=== PATIENT | female | born 1985 | race Hispanic/Latino ===

== ENCOUNTER 2017-03-03 16:50 | Emergency (ER) | payer OTHER ==
[2017-03-03 16:59] VITALS: BP 130/87; TEMP 98.6
[2017-03-03 18:20] LABS: BASO % 0.5 % (0.0-2.0); EOS % 0.3 % (0.0-4.0); HEMATOCRIT 37.8 % (34.0-47.0); LYMPH # 1.9 K/uL (1.0-4.3); LYMPH % 36.9 % (20.0-40.0); MEAN CELL VOLUME 90.1 fl (81.0-99.0); MEAN CORPUSCULAR HEMOGLOBIN 29.4 pg (27.0-31.0); MEAN CORPUSCULAR HGB CONC 32.6 g/dL (33.0-37.0); MEAN PLATELET VOLUME 8.6 fl (7.2-11.7); MONO # 0.4 K/uL (0.0-0.8); MONO % 8.5 % (0.0-10.0); NEUT # 2.7 K/uL (1.8-7.0); NEUT % 53.8 % (50.0-75.0); NRBC % 0.1 % (0.0-0.0); RED CELL DISTRIBUTION WIDTH 13.3 % (11.5-14.5)
--- NOTE | 2017-03-03 18:22 | ED PDOC ---
HPI: Abdomen Time Seen by Provider: 03/03/17 17:47 Chief Complaint (Nursing): Chest Pain Additional Complaint(s): 32yo F in Ed for eval or RUQ pain and band like pain radiating to the right mid back [id number] made worse with bending over states she feels a gas like sound without difficulty with breathing, SOB or chest pain. admits to mild nausea without vomiting today and dec appetite. Pt denies any pain at this time. PT denies injury. negative for: prolonged travel, bleeding d/o, recent injury/surgery. denies hematuira, dysuira Positive: takes oral control x 12 years. Past Medical History Reviewed: Historical Data, Nursing Documentation, Vital Signs Vital Signs: Last Vital Signs Temp 98.6 F 03/03/17 16:57 Pulse 113 H 03/03/17 16:57 Resp 16 03/03/17 16:57 BP 130/87 03/03/17 16:57 Pulse Ox 100 03/03/17 18:49 - Medical History PMH: Anxiety - Family History Family History: States: No Known Family Hx - Allergies Allergies/Adverse Reactions: Allergies Allergy/AdvReac Type Severity Reaction Status Date / Time No Known Allergies Allergy Verified 03/03/17 16:56 Review of Systems ROS Statement: Except As Marked, All Systems Reviewed And Found Negative Constitutional: Negative for: Fever, Chills Gastrointestinal: Positive for: Abdominal Pain Musculoskeletal: Positive for: Back Pain Physical Exam - Reviewed Nursing Documentation Reviewed: Yes Vital Signs Reviewed: Yes - Physical Exam Appears: Positive for: Well, Non-toxic, No Acute Distress Skin: Positive for: Normal Color, Warm, DRY Cardiovascular/Chest: Positive for: Regular Rate, Rhythm Respiratory: Positive for: CNT, Normal Breath Sounds Gastrointestinal/Abdominal: Positive for: Bowel Sounds, Soft, Tenderness (RUQ pain) Back: Negative for: L CVA Tenderness, R CVA Tenderness Extremity: Positive for: Normal ROM Neurologic/Psych: Positive for: Alert, Oriented - Laboratory Results Result Diagrams: 03/03/17 18:11 03/03/17 18:11 - ECG O2 Sat by Pulse Oximetry: 100 - Progress ED Course And Treament: PT with negative findings on US other than liver lesion-pt aware of this from her previous PMD visits. PT with normal labs values. PT made aware of low suspicion of PE only due to HR and control use pt opting at this time to use less invasive methods of r.o PE hence will do a D-dimer. pt aware of D-dimer is elevated will need to do CT scan of Chest. PT made aware of low sensitivity and specificity. pt was offered control of nausea and or pain, but declined. Disposition - Clinical Impression Clinical Impression: Chest pain - Patient ED Disposition Is Patient to be Admitted: Transfer of Care - Disposition Disposition Time: 20:11 Condition: STABLE Forms: [facility] (Urdu) Patient Signed Over To: Betzy Dolan
[2017-03-03 18:31] LABS: ALB/GLOB RATIO 1.5 (1.0-2.1); ALKALINE PHOSPHATASE 30 U/L (38-126); ALT/SGPT 28 U/L (9-52); AST/SGOT 22 U/L (14-36); BILIRUBIN,TOTAL 0.7 mg/dl (0.2-1.3); BLOOD UREA NITROGEN 9 mg/dl (7-17); CALCIUM 9.4 mg/dL (8.4-10.2); CARBON DIOXIDE 22 mmol/L (22-30); CHLORIDE 107 mmol/L (98-107); GFR AFRICAN-AMERICAN > 60; GLUCOSE,RANDOM 82 mg/dL (65-105); LIPASE 55 U/L (23-300); POTASSIUM 3.7 MMOL/L (3.6-5.0); SODIUM 139 mmol/l (132-148); TOTAL PROTEIN 7.2 G/DL (6.3-8.2)
--- NOTE | 2017-03-03 19:03 | US ---
HISTORY: RUQ pain with radiation to back COMPARISON: None available. TECHNIQUE: Sonographic evaluation of the right upper quadrant of the abdomen. FINDINGS: LIVER: Measures 15.3 cm in length. 1.1 x 0.9 x 1.4 cm echogenic right hepatic lobe lesion. The main portal vein appears patent with normal directional flow. No intrahepatic bile duct dilatation. GALLBLADDER: No gallstones. No gallbladder wall thickening or pericholecystic edema. Negative sonographic Hassan's sign as assessed by the materials director. COMMON BILE DUCT: Measures 3 mm. PANCREAS: Not well-visualized. RIGHT KIDNEY: Measures 9.1 x 4.2 x 3.9 cm. No obstructing calculus or hydronephrosis identified. AORTA: Limited visualization appears grossly unremarkable. IVC: Limited visualization appears grossly unremarkable. OTHER FINDINGS: None. IMPRESSION: 1.1 x 0.9 x 1.4 cm echogenic right hepatic lobe lesion, indeterminate. Dedicated three-phase liver protocol CT or MRI may be considered for further characterization if indicated.
[2017-03-03 19:08] LABS: RBC URINE 4 /hpf (0-3); URINE BILIRUBIN NEGATIVE (NEGATIVE); URINE BLOOD SMALL (NEGATIVE); URINE COLOR YELLOW (YELLOW); URINE GLUCOSE (UA) NEG (Normal); URINE KETONE 80 mg/dL (NEGATIVE); URINE LEUKOCYTE ESTERASE NEG Leu/uL (Negative); URINE PROTEIN NEGATIVE (NEGATIVE); URINE UROBILINOGEN 0.2-1.0 mg/dL (0.2-1.0); WBC URINE 1 /hpf (0-5)
--- NOTE | 2017-03-03 20:32 | ED PDOC ---
- Laboratory Results Result Diagrams: 03/03/17 18:11 03/03/17 18:11 - ECG O2 Sat by Pulse Oximetry: 100 - Progress ED Course And Treament: Case endorsed to marine underwriter from Raffy CRAIG pending labs Patient educated on findings, discharged with instructions to follow up PMD 2-3 days. Advised NSAIDs. Return to ED for worsening/concerning symptoms. Disposition - Clinical Impression Clinical Impression: Chest pain - POA Present On Arrival: None - Disposition Disposition: Routine/Home Disposition Time: 20:32 Condition: STABLE Instructions: Chest Pain (ED) Forms: [facility] (Greenlandic)
[2017-03-03 20:43] VITALS: PULSE 87; RESP 18; O2SAT 99
--- NOTE | 2017-03-04 08:31 | RAD ---
HISTORY: chest pain COMPARISON: No prior. TECHNIQUE: Chest PA and lateral FINDINGS: LUNGS: No active pulmonary disease. PLEURA: No significant pleural effusion identified. No pneumothorax apparent. CARDIOVASCULAR: Normal. OSSEOUS STRUCTURES: No significant abnormalities. VISUALIZED UPPER ABDOMEN: Normal. OTHER FINDINGS: None. IMPRESSION: No acute cardiopulmonary disease appreciated.
--- NOTE | 2017-03-05 16:01 | CARD ---
APPROVED REPORT EKG Measurement Heart [id number] <Conclusion> Sinus tachycardia Rightward axis Incomplete right bundle branch block Septal infarct, age undetermined Abnormal ECG
== END 2017-03-03 20:45 | disposition home or self-care (01) ==
LOC: H.ER 16:50
DX: R07.9 Chest pain, unspecified (principal)